=== PATIENT | male | born 1955 | race Caucasian/White ===

== ENCOUNTER 2020-06-12 08:08 | Outpatient (REF) | payer MEDICARE, SELFPAY | END 2020-06-12 08:09 | disposition home or self-care (01) | LOC: HO.HMGCLDS 08:08 | PROVIDERS: Visit Provider Internal Medicine | DX: Z20.828 Contact with and (suspected) exposure to other viral communicable diseases (principal) | CPT/HCPCS: U0003 ==

== ENCOUNTER 2021-10-05 19:01 | Emergency (ER) | payer OTHER, MEDICARE, SELFPAY ==
--- NOTE | 2021-10-05 | ECG_ITS ---
Test Reason : CHEST PAIN Blood Pressure : / mmHG Vent. Rate : 088 BPM Atrial Rate : 088 BPM P-R Int : 186 ms QRS Dur : 088 ms QT Int : 364 ms P-R-T Axes : 049 047 049 degrees QTc Int : 440 ms Normal sinus rhythm Normal ECG No previous ECGs available Referred By: Generic ED Physician Electronically Signed By:LAVONNE PUGH
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
[2021-10-05 19:20] VITALS: BP 156/99; PULSE 80; RESP 18; TEMP 36.4; O2SAT 95; BMI 26.6
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
[2021-10-05 22:07] VITALS: BP 177/84; PULSE 84; RESP 18; O2SAT 94
[2021-10-06 00:02] LABS: COVID-19 Test Negative (Negative)
[2021-10-06 00:44] VITALS: BP 146/91; PULSE 75; RESP 19; TEMP 36.6; O2SAT 98
== END 2021-10-06 01:00 | disposition short-term general hospital (02) ==
PROVIDERS: Physician Assistant Medical; Emergency Provider Emergency Medicine; PCP Family Medicine
DX: S22.42XA Multiple fractures of ribs, left side, initial encounter for closed fracture (principal); S22.20XA Unspecified fracture of sternum, initial encounter for closed fracture; R07.89 Other chest pain; R06.02 Shortness of breath; M54.6 Pain in thoracic spine; V43.62XA Car passenger injured in collision with other type car in traffic accident, initial encounter; Y93.9 Activity, unspecified; Y92.410 Unspecified street and highway as the place of occurrence of the external cause; Y99.9 Unspecified external cause status; Z20.822 Contact with and (suspected) exposure to COVID-19; Z79.899 Other long term (current) drug therapy
CPT/HCPCS: 71045; 71250; 87635; 93005; 99285

== ENCOUNTER 2024-10-26 09:20 | Outpatient (AMB) | payer OTHER, MEDICARE, SELFPAY ==
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
[2024-10-26 09:33] VITALS: BP 169/85; PULSE 60; RESP 14; TEMP 36.4; O2SAT 96; BMI 25.2
== END 2024-10-26 10:06 | disposition home or self-care (01) ==
LOC: HO.HMCSH 09:21
PROVIDERS: PCP Internal Medicine; Visit Provider Physician Assistant Medical
DX: Z76.89 Persons encountering health services in other specified circumstances (principal); I10 Essential (primary) hypertension; H54.40 Blindness, one eye, unspecified eye; E66.3 Overweight; Z68.25 Body mass index [BMI] 25.0-25.9, adult

== ENCOUNTER → 2024-10-26 09:20 | Outpatient (BNVA) | payer OTHER, MEDICARE, SELFPAY | PROVIDERS: PCP Internal Medicine; Visit Provider Physician Assistant Medical | DX: I10 Essential (primary) hypertension (principal); H54.40 Blindness, one eye, unspecified eye; E66.3 Overweight; F17.210 Nicotine dependence, cigarettes, uncomplicated; Z68.25 Body mass index [BMI] 25.0-25.9, adult; Z76.89 Persons encountering health services in other specified circumstances | CPT/HCPCS: 96127 ==

== ENCOUNTER 2024-10-29 08:58 | Outpatient (REF) | payer MEDICARE, OTHER, SELFPAY ==
[2024-10-29 10:10] LABS: MANUAL DIFF FLAG NO
[2024-10-29 10:34] LABS: Basophils Absolute Auto 0.1 X10*3/uL (0.0-0.2); Basophils Percent Auto 0.7 % (0-2); Eosinophils Absolute Auto 0.1 X10*3/uL (0.0-0.4); Eosinophils Percent Auto 1.4 % (0-4); Hematocrit 49.4 % (42.0-52.0); Hemoglobin 16.3 g/dl (14.0-18.0); Imm Gran Abs Auto 0.04 X10*3/uL (0.00-0.03); Imm Gran Pct Auto 0.5 % (0.0-0.4); Lymphocytes Absolute Auto 1.9 X10*3/uL (1.2-4.9); Lymphocytes Percent Auto 25.4 % (20-40); Mean Corpuscular Hemoglobin 30.8 pg (27.0-33.0); Mean Corpuscular Volume 93.2 fL (80.0-98.0); Mean Platelet Volume 11.1 fL (9.4-12.4); Monocytes Absolute Auto 0.8 X10*3/uL (0.1-1.2); Monocytes Percent Auto 10.6 % (2-11); Neutrophils Absolute Auto 4.5 x10*3/uL (2.0-8.3); Neutrophils Percent Auto 61.4 % (45-73); Platelet Count 296 X10*3/uL (160-400); Red Cell Distribution Width 13.9 % (11.0-16.0); White Blood Count 7.4 X10*3/uL (4.8-10.8)
[2024-10-29 10:39] LABS: Estimated Average Glucose 126 mg/dL; Hemoglobin A1C 178.7736 umol/L; Total Hemoglobin (HGBA1C) 4224.6674 umol/L
[2024-10-29 11:00] LABS: Alanine Aminotransferase 16 U/L (0-40); Albumin Level 4.4 g/dL (3.5-5.0); Alkaline Phosphatase 58 U/L (39-117); Anion Gap 11 (12-20); Aspartate Amino Transferase 19 U/L (5-37); Bilirubin Direct 0.2 mg/dL (0.0-0.5); Bilirubin Total 0.6 mg/dL (0.0-1.0); Blood Urea Nitrogen 13 mg/dL (9-16); Calcium 9.1 mg/dL (8.4-10.2); Carbon Dioxide 24 mmol/L (22-29); Chloride 107 mmol/L (96-108); Cholesterol 146 mg/dL (<200); Estimated Glomerular Filt Rate > 60; Glucose Fasting 99 mg/dL (60-99); HDL Cholesterol 31 mg/dL (>40); LDL Cholesterol Calculated 98 mg/dL (<100); Magnesium 2.2 mg/dL (1.6-2.6); Sodium 138 mmol/L (135-145); Total Protein 7.1 g/dL (6.5-8.0); Triglycerides 88 mg/dL (<150)
[2024-10-29 11:02] LABS: TSH reflex Free T4 1.87 uIU/mL (0.32-4.0); Vitamin D 25-OH Total 29.4 ng/mL (>30)
[2024-10-29 11:09] LABS: Erythrocyte Sedimentation Rate 2 MM/HR (0-15)
[2024-10-29 11:18] LABS: Folate 3.1 ng/mL (> or = 4.0); Vitamin B12 186 pg/mL (200-900)
[2024-10-29 11:19] LABS: PSA,Total (Free>4and<10) 6.25 ng/mL (0.00-4.00)
[2024-11-01 13:38] LABS: Free Prostate Spec Ag 0.8 ng/mL; Percent Free Prostate Spec Ag 11 % (calc) (>25); Prostate Specific Ag Total 7.1 ng/mL (< OR = 4.0)
== END 2024-10-29 08:59 | disposition home or self-care (01) ==
LOC: HO.HMGCLDS 08:58
PROVIDERS: PCP Internal Medicine; Visit Provider Physician Assistant Medical
DX: Z00.00 Encounter for general adult medical examination without abnormal findings (principal); Z12.5 Encounter for screening for malignant neoplasm of prostate; Z13.1 Encounter for screening for diabetes mellitus; Z13.220 Encounter for screening for lipoid disorders; Z13.29 Encounter for screening for other suspected endocrine disorder; Z13.0 Encounter for screening for diseases of the blood and blood-forming organs and certain disorders involving the immune mechanism
CPT/HCPCS: 36415; 80053; 80061; 80076; 82248; 82306; 82607; 82746; 83036; 83735; 84153; 84154; 84443; 85025; 85652

== ENCOUNTER 2024-11-27 09:59 | Outpatient (AMB) | payer MEDICARE, SELFPAY ==
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
[2024-11-27 10:08] VITALS: BP 136/80; PULSE 56; TEMP 36.4; O2SAT 96; BMI 25.0
== END 2024-11-27 10:53 | disposition home or self-care (01) ==
LOC: HO.HMCSH 09:59
PROVIDERS: PCP Internal Medicine; Visit Provider Internal Medicine
DX: R79.89 Other specified abnormal findings of blood chemistry (principal); E66.3 Overweight; Z68.25 Body mass index [BMI] 25.0-25.9, adult; H54.40 Blindness, one eye, unspecified eye; I10 Essential (primary) hypertension; F17.200 Nicotine dependence, unspecified, uncomplicated; Z00.00 Encounter for general adult medical examination without abnormal findings

== ENCOUNTER → 2024-11-27 09:59 | Outpatient (BNVA) | payer MEDICARE, SELFPAY | PROVIDERS: PCP Internal Medicine; Visit Provider Internal Medicine | DX: E66.3 Overweight (principal); R79.89 Other specified abnormal findings of blood chemistry; H54.40 Blindness, one eye, unspecified eye; I10 Essential (primary) hypertension; F17.210 Nicotine dependence, cigarettes, uncomplicated; E53.8 Deficiency of other specified B group vitamins; Z68.25 Body mass index [BMI] 25.0-25.9, adult | CPT/HCPCS: 96127; 99212 ==

== ENCOUNTER 2025-04-01 09:34 | Outpatient (REF) | payer MEDICARE, SELFPAY ==
[2025-04-03 23:08] LABS: Free Prostate Spec Ag 1.0 ng/mL; Percent Free Prostate Spec Ag 16 % (calc) (>25)
== END 2025-04-01 09:35 | disposition home or self-care (01) ==
LOC: HO.HMGCLDS 09:34
PROVIDERS: PCP Internal Medicine; Visit Provider Urology
DX: N40.0 Benign prostatic hyperplasia without lower urinary tract symptoms (principal)
CPT/HCPCS: 36415; 84154

== ENCOUNTER 2025-05-28 09:46 | Outpatient (AMB) | payer MEDICARE, SELFPAY ==
[2025-05-28 09:51] VITALS: BP 153/74; PULSE 66; RESP 14; TEMP 36.4; O2SAT 96; BMI 24.2
--- NOTE | 2025-05-28 09:51 | A.OFFPC_ITS ---
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 - His current medications for blood pres sure are atenolol and lisinopril. - He reports developing an occasional, n on-severe cough since starting lisinopril 5 mg, which does not impact his lifestyle. - The patient does not monitor his blood pressure at home. - The patient has a history of an elevat ed prostate-specific antigen (PSA) level, which is being monitored by a urologist and is noted to fluctuate. - He has reduced his smoking to about fo ur to five cigarettes per day. - For preventative care, he is up-to-edis e on his colonoscopy and recently received his flu shot. Social History - Tobacco Use: The patient has cut back on smoking and now smokes about 4 to 5 cigarettes per day. - Functional Status: The patient does no t drive and was brought to the appointment by his brother. - He performs his own cooking and grocer y shopping. - Exercise: He does a lot of walking. Results - Labs: Blood work from October showed an el evated prostate level; other results were good. [facility] Medical History Tobacco use disorder Folate deficiency Vitamin D deficiency Low vitamin B12 level Overweight with body mass index (BMI) of 25 to 25.9 in adult Establishing care with new doctor, encounter for History of skull fracture History of fractured rib History of pneumothorax Blind left eye Essential hypertension Surgical History History of colonoscopy (~08/30/23) History of tracheostomy Family History Father No problems noted. Mother No problems noted. Social History Housing: House Alcohol intake: current Alcohol intake frequency: does not drink Patient Tobacco Use Status: Current everyday Tobacco user Tobacco use type: Cigarette Cigarettes Per Day: 5 Substance Use Type: Marijuana service: No Current occupational status: retired Cognitive needs: Yes (blind Left eye) Hearing needs: No Vision needs: Yes (rx glasses) Questionnaire PHQ-9 Over the last 2 weeks, how often have you been bothered by any of the following problems? 1. Little interest or pleasure in doing things: not at all 2. Feeling down, depressed, or hopeless: not at all 3. Trouble falling or staying asleep, or sleeping too much: not at all 4. Feeling tired or having little energy: not at all 5. Poor appetite or overeating: not at all 6. Feeling bad about yourself - or that you are a failure or have let yourself or your family down: not at all 7. Trouble concentrating on things, such as reading the newspaper or watching television: not at all 8. Moving or speaking so slowly that other people could have noticed. Or the opposite - being so fidgety or restless that you have been moving around a lot more than usual: not at all 9. Thoughts that you would be better off or of hurting yourself in some way: not at all Total score: 0 Depression Screening Interpretation: Negative Depression Screening Done: Yes 17829 - PHQ-9 Billing: Yes Source: Developed by Drs. Pepe Friend, Ciara Surbamanian, Adalid Nowak and colleagues, with an educational thao from [employer]. Thrive Questionnaire Date Thrive assessed: 10/26/24 I am a: Patient What is your living situation today?: I have a steady place to live Within the past 12 months, did the food you bought not last and you didn't have the money to get more?: Never true Within the past 12 months, did you worry whether your food would run out before you got money to buy more?: Never true Do you have trouble paying for medicines?: No Do you have trouble getting transportation to medical appointments?: No Do you have trouble paying your heating and electricity bill?: No Do you have trouble taking care of your child, family member or friend?: No Do you have trouble with day-to-day activities such as bathing, preparing meals, shopping, managing finances, etc.?: No Are you currently unemployed and looking for a job?: No Are you interested in more education?: No Please select the resources that you would like help with: None THRIVE Score: 0 AUDIT C Alcohol Use Questionnaire (AUDIT-C) 1. How often do you have a drink containing alcohol?: Never 3. How often do you have six or more drinks on one occasion?: Never Total Score: 0 Score Reviewed/Action Taken: No KUSUM-7 AMB Questionnaire KUSUM-7 Date KUSUM - 7 assessed: 10/26/24 Feeling nervous, anxious, or on edge: 0 = Not at all Not being able to stop or control worryin = Not at all Worrying too much about different things: 0 = Not at all Trouble relaxin = Not at all Being so restless that it is hard to sit still: 0 = Not at all Becoming easily annoyed or irritable: 0 = Not at all Feeling afraid as if something awful might happen: 0 = Not at all Total KUSUM-7 score (0-4 normal; 5-9 mild; 10-14 moderate; 15-21 severe): 0 Source: Developed by Drs. Pepe Friend, Ciara Subramanian, Adalid Nowak and colleagues, with an educational thao from [employer]. KUSUM-7 Assessment Billing KUSUM-7 Assessment Tool: KUSUM-7 Assessment 14134 Review of Systems Narrative Review of Systems - General: Reports feeling well. - Respiratory: Reports an occasional cough. Physical exam (Primary Care) Vital Signs: Last Vital Signs Temp 97.5 F 05/28/25 09:51 Pulse 66 05/28/25 09:51 Resp 14 05/28/25 09:51 BP 153/74 H 05/28/25 09:51 Pulse Ox 96 05/28/25 09:51 Oxygen Delivery Method Room Air 05/28/25 09:51 BMI result Body Mass Index 24.2 Tobacco/Smoking Status: Tobacco use Status Tobacco use date assessed 11/27/24 05/28/25 09:52 Patient Tobacco Use Status Current everyday Tobacco 05/28/25 09:52 Tobacco use type Cigarette 05/28/25 09:52 PHQ-9: PHQ-9 Score PHQ-9: Total score 0 05/28/25 10:19 Depression Screening Interpretation: Negative Thrive Assessment: Date of Thrive Assessment Date Thrive assessed 10/26/24 05/28/25 09:52 Narrative Physical Exam General: Appearance normal, both eyes and all related structures Nutritional Appearance: Well nourished Orientation/consciousness: Patient oriented x3 Limitations: No limitations Head: Normal to inspection Neck: Normal visual inspection Chest: Normal palpation of entire chest wall Respiratory: Occasional cough noted, likely due to medication Neurology: Patient oriented x3 Office Procedures Flu Questionnaire Does the patient have a severe egg allergy?: No Does the patient have severe life threatening allergies?: No Does the patient have a fever or illness today?: No Has the patient ever had Guillain-Rivers[place] Syndrome?: No Has the patient ever had any past reaction to a flu shot?: No Immunizations Fluarix [id number] (PF) 45 mcg (15 mcg x 3)/0.5 mL IM syringe Performing Provider: Nain Porras MD [facility] [place] [facility] Administered by: TYRELL Friend on 05/28/25 10:19 Dose Route Admin Location Dispensed Lot Number Expiration Date [facility] [place][NOTE 2] [employer] 0.5 mL IM Left Deltoid 0.5 mL [id number] 12/10/25 [id number] [email or web address] VIS Given Date VIS Provided VIS Publication Date 05/28/25 Single Vaccine 24 Eligibility Eligibility Date Funding Source Not [facility] Eligible 05/28/25 Private Coding Level of Care Code Est Pt Level 4 (90433) Add On Problem Visit Only Diagnoses Essential hypertension I10 Additional Codes KUSUM-7 Assessment Billing - KUSUM-7 Assessment Tool: KUSUM-7 Assessment 38673 ([id number]) PHQ-9 - 05124 - PHQ-9 Billing: Yes ([id number]) Assessment & Plan Assessment & Plan (1) Essential hypertension: Code(s): I10 - Essential (primary) hypertension Category: Medical Plan Plan - Because the patient's blood pressure remains high on atenolol and lisinopril, and he is experiencing a cough from lisinopril, the lisinopril will be discontinued. - A new, stronger antihypertensive medication at a dosage of 100 mg once daily will be started, to be taken with his atenolol. - A 30-day supply of the new medication will be sent to [facility] in [place]. - The patient was counseled to continue his efforts to reduce smoking. - Fasting blood work has been ordered to check cholesterol and other parameters. - A follow-up appointment is scheduled in one month to check his blood pressure response to the new medication. - The patient will continue to be monitored by urology for his elevated PSA. Discussion Notes I discussed with the patient that his blood pressure is not well-controlled despite being on both atenolol and lisinopril. I noted the occasional cough he developed is a known side effect of lisinopril. Given the uncontrolled hypertension and the side effect, I explained that I would stop the lisinopril and start a different, stronger medication as increasing the lisinopril dose could worsen his cough. I instructed him to take the new 100 mg tablet once daily along with his atenolol. I ordered fasting blood work and will send an initial 30-day supply of the new medication to his pharmacy. I congratulated him on significantly cutting back his smoking to 4-5 cigarettes per day and encouraged him to continue reducing. We will follow up in one month to re-evaluate his blood pressure. Patient Instructions - Stop taking the lisinopril medication. - Start the new blood pressure medicine that has been sent to your pharmacy, [facility] in [place]. - Take one pill of the new medication (100 mg) once a day, along with your atenolol. - Continue your excellent progress with cutting back on smoking. - Get the fasting blood work done as ordered. - Make an appointment to come back in one month to check your blood pressure. Orders: Orders Influenza [id number] Immunization Today Z23 - Encounter for immunization Medications: New losartan 100 mg PO DAILY 30 tabs 0RF Discontinued lisinopril Discontinued Reason: Doctor's Order 5 mg PO DAILY 90 tabs 3RF
== END 2025-05-28 10:35 | disposition home or self-care (01) ==
LOC: HO.HMCSH 09:46
PROVIDERS: PCP Internal Medicine; Visit Provider Internal Medicine
DX: Z23 Encounter for immunization (principal); I10 Essential (primary) hypertension

== ENCOUNTER → 2025-05-28 09:46 | Outpatient (BNVA) | payer MEDICARE, SELFPAY | PROVIDERS: PCP Internal Medicine; Visit Provider Internal Medicine | DX: Z23 Encounter for immunization (principal); I10 Essential (primary) hypertension | CPT/HCPCS: 90471; 90656; 96127; 99212 ==